=== PATIENT | female | born 1975 | race Caucasian/White ===

== ENCOUNTER 2019-04-02 21:13 | Emergency (ER) | payer OTHER ==
[2019-04-02] MEDS ORDERED: ACETAMINOPHEN EXTRA STRENGTH 500 MG TABLET ONE (21:20)
[2019-04-02 21:43] LABS: RAPID GROUP A STREP NEGATIVE (NEGATIVE)
[2019-04-02] MEDS ORDERED: IBUPROFEN 600 MG TABLET ONE (22:58)
[2019-04-02] MEDS ORDERED: OSELTAMIVIR PHOSPHATE 75 MG CAP ONE (22:59)
== END 2019-04-02 23:28 | disposition home or self-care (01) ==
LOC: EDH 21:13
DX: J11.1 Influenza due to unidentified influenza virus with other respiratory manifestations (principal); Z90.49 Acquired absence of other specified parts of digestive tract; Z98.890 Other specified postprocedural states
CPT/HCPCS: 87804; 87880